=== PATIENT | female | born 1990 | race Asian ===

== ENCOUNTER 2025-04-06 09:49 | Inpatient (IN) ==
[2025-04-06] MEDS ORDERED: TERBUTALINE 1 MG/ML VIAL SUBQ PRN (09:57)
[2025-04-06] MEDS ORDERED: METHYLERGONOVINE 0.2 MG/ML VIAL IM PRN (09:57)
[2025-04-06] MEDS ORDERED: OXYTOCIN/SODIUM CHLORIDE 500 ML IV PRN (09:57)
[2025-04-06] MEDS ORDERED: ACETAMINOPHEN 500 MG TABLET PO PRN ×2 (09:57)
[2025-04-06] MEDS ORDERED: ONDANSETRON ODT 4 MG TABLET PO PRN (09:57)
[2025-04-06] MEDS ORDERED: hydrALAZINE INJ 20 MG/ML VIAL IVP PRN (09:57)
[2025-04-06] MEDS ORDERED: fentaNYL 100 MCG/2 ML VIAL IVP PRN (09:57)
[2025-04-06] MEDS ORDERED: SODIUM CHLORIDE FLUSH 0.9% 10 ML SYRINGE IVP PRN (09:57)
[2025-04-06] MEDS ORDERED: CALCIUM CARBONATE CHEW 500 MG TABLET PO PRN (09:57)
[2025-04-06] MEDS ORDERED: CARBOPROST TROMETHAMINE 250 MCG/ML VIAL IM PRN (09:57)
[2025-04-06] MEDS ORDERED: LABETALOL 20 MG/4 ML SYRINGE IVP PRN ×3 (09:57)
[2025-04-06] MEDS ORDERED: METOCLOPRAMIDE 10 MG TABLET PO PRN (09:57)
[2025-04-06] MEDS ORDERED: OXYTOCIN 10 UNIT/ML VIAL IM PRN (09:57)
--- NOTE | 2025-04-06 09:57 | HISTORY & PHYSICAL EXAMINATION ---
Admit History Smoking Status: Never smoker Other Maternal History Other Maternal History: Patient is a 34-year-old G2, P1 at 39 weeks 0 days gestation presenting for induction of labor at term.. She has good movement. Denies loss of fluid. No BURTON/BV or RUQP. No vaginal bleeding. Denies nausea and vomiting. Denies urinary urgency or dysuria. All other symptoms reviewed and were negative except per HPI. 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 Pre- Weight: 138 BMI: 23.6 Blood type: B+ Antibody: neg CBC: H/H: plt 12.8/37.7 284 RUB: immune VZV: immune HBsAg: negative HepC: NR RPR/AB-EIA: NR HIV: NR PAP:2021-normal GC/CT: 2/5-Negative HSV: denies self/partner Genetic testing: Negative NIPT. Negative OSB. Discussed carrier screening. Covid: had covid just before Flu: vaccinated in the fall RSV: Not in season FAS: Placenta: posterior w/o previa Cord:3VC MARY:Normal EFW: 2138g, 51% 50gm OGCT:168 3HR GTT:Profiling on week. TDAP: 02/03 Breast Pump:02/03 3rd trimester H/H/PLT 11.3/35.3/290 RPR: NR GBS:03/16- negative Contraception Meds/Allgy Home Medications Ambulatory Orders Medication Instructions Recorded Confirmed vits no.126-ferrous fum tab PO 09/15/2403/31 28 mg iron-folic acid 800 mcg tablet (Classic ) blood sugar diagnostic (Blood #50 ea 03/16/25 03/31/25 Glucose Test strips) blood-glucose meter (Blood Glucose #1 ea 03/16/2503/18 Monitoring kit) lancets 33 gauge #100 ea 03/16/25 03/31/25 Allergies Allergies Allergy/AdvReac Type Severity Reaction Status Date / Time No Known Drug Allergies Allergy Verified 03/16/25 10:58 PFSH Active Problems All Active Problems (Updated 04/06/25 @ 15:07 by Ej Mcalin MD) 39 weeks gestation of (Acute) Small for gestational age fetus affecting management of mother in grijalva in third trimester (Acute) Glucose intolerance of (Acute) Supervision of normal (Acute) Social History Social History (Updated 11/02/24 @ 14:01 by Gregoria Mccracken MD) Smoking Status: Never smoker Do you dip or chew tobacco?: No Living arrangement: At home Marital Status: Living Condition: With family Support Person: Yes Living Situation Details: Karlos, daughter born 05/2022. they own [employer]. Level: Independent Occupation - Current: work/owns [employer] Review of Systems Status of ROS: 10 or more systems reviewed and unremarkable except as noted in history and below Physical Other Notes Labor Progress Note/Additional Text: General: Alert, oriented, no acute distress Head: Normal cephalic atraumatic Eyes: PERRLA, extraocular motions intact. Respiratory: Normal rate of respiration. No accessory muscle use, normal respiratory effort. Abdomen: Gravid, nontender, nondistended Extremities: Normal range of motion Neuro: Oriented x3. Normal movements Psych: Appropriate mood and affect. Normal judgment and insight SVE: 0/0/-3 FHT: 140 BPM baseline, moderate variability, accelerations present, no decelerations. Reactive NST [place]: quiescent Plan for Labor Plan For Labor I expect patient to be DC'd or transferred within 96 hours.: Yes Conclusion/Plan Problem List (1) Supervision of normal : Plan: Admit to L&D, admit labs, epidural patient's request. Plan to start with cervical ripening with misoprostol. Oxytocin and amniotomy when favorable. Qualifiers: Normal : other normal Trimester: third trimester Qualified Code(s): Z34.83 - Encounter for supervision of other normal , third trimester (2) Glucose intolerance of :
[2025-04-06 11:46] LABS: HCT - HEMATOCRIT 36.0 % (37.0-47.0); HGB - HEMOGLOBIN 11.6 g/dL (12.0-16.0); MEAN PLATELET VOLUME 10.6 fL (7.9-10.8); NRBC ABSOLUTE COUNT (AUTO) 0.00 x10^3/uL; NUCLEATED RED BLOOD CELLS AUTO 0.0 /100WBC; PLT - PLATELET COUNT 305 10^3/uL (130-450); RED CELL DISTRIBUTION WIDTH 12.8 % (12.0-15.0)
--- NOTE | 2025-04-06 14:03 | ANESTHESIA PROCEDURE NOTE ---
Pre-Anesthesia VS, & Labs Diagnosis Surgical Diagnosis:: Induction of labor Procedure Procedure: vaginal delivery Vitals Vital Signs: Temp Pulse Resp BP 36.7 C 113 H 19 138/82 H 04/06/25 10:59 04/06/25 10:59 04/06/25 10:59 04/06/25 10:59 NPO NPO: Other (clear liquids during labor) Is Patient ?: Yes Lab Results Current Lab Results: Laboratory Tests 04/06/25 11:20: WBC 6.8, RBC 4.17 L, Hgb 11.6 L, Hct 36.0 L, MCV 86.3, MCH 27.8, MCHC 32.2, RDW 12.8, Plt Count 305, MPV 10.6, Neut # (Auto) 4.7, Lymph # (Auto) 1.2 L, [place] # (Auto) 0.8, Eos # (Auto) 0.1, Baso # (Auto) 0.0, Absolute Nucleated RBC 0.00, Nucleated RBC % 0.0, Blood Type B POSITIVE, Antibody Screen NEGATIVE Lab results reviewed: Yes 04/06/25 11:20 Meds/Allgy Home Medications Ambulatory Orders Medication Instructions Recorded Confirmed vits no.126-ferrous fum tab PO 09/15/2403/31 28 mg iron-folic acid 800 mcg tablet (Classic ) blood sugar diagnostic (Blood #50 ea 03/16/25 03/31/25 Glucose Test strips) blood-glucose meter (Blood Glucose #1 ea 03/16/25 08/1 12/10 Monitoring kit) lancets 33 gauge #100 ea 03/16/25 03/31/25 Allergies Allergies Allergy/AdvReac Type Severity Reaction Status Date / Time No Known Drug Allergies Allergy Verified 03/16/25 10:58 PFSH Active Problems All Active Problems 39 weeks gestation of (Acute) Small for gestational age fetus affecting management of mother in grijalva in third trimester (Acute) Glucose intolerance of (Acute) Supervision of normal (Acute) Social History Social History (Updated 11/02/24 @ 14:01 by Gregoria Mccracken MD) Smoking Status: Never smoker Do you dip or chew tobacco?: No Living arrangement: At home Marital Status: Living Condition: With family Support Person: Yes Living Situation Details: Karlos, daughter born 05/2022. they own [employer]. Level: Independent Occupation - Current: work/owns [employer] Anesthesia Exam (Expanded) Exam General: Alert, Oriented x3 and Cooperative Dental: WNL Mouth Openin Fingerbreadth Neck Mobility: Normal Mallampati classification: II Thyromental Distance: 4-6 cm Exam Exam Vital Signs: Vital Signs x48h Temp Pulse Resp BP 04/06/25 10:59 36.7 C 113 H 19 138/82 H Plan Plan Anesthesia Type: Epidural Consent for Procedure(s) Verified and Reviewed: Yes Code Status: Attempt Resuscitation ASA Classification ASA classification: 2-Mild systemic disease Is this case an emergency?: No
[2025-04-06] MEDS: FAMOTIDINE 20 MG/2 ML VIAL IVP SCH (15:54)
[2025-04-06] MEDS: SODIUM CHLORIDE FLUSH 0.9% 10 ML SYRINGE IVP SCH (15:55)
--- NOTE | 2025-04-06 17:15 | PROVIDER PROGRESS NOTE ---
Labor Progress Note Labor Progress Note Labor Progress Note/Additional Text: Patient doing well, received second dose of misoprostol. Intermittently elevated blood pressures, now meeting criteria for gestational hypertension. Labs were drawn. Fetus remains category 1. Tunde very regularly. Feeling more intense, but 3/10. Next dose due at 1930 unless tunde too frequently. Discussed cervical ripening balloon, but patient will continue to consider, currently somewhat hesitant.
[2025-04-06 17:37] LABS: HCT - HEMATOCRIT 39.8 % (37.0-47.0); HGB - HEMOGLOBIN 12.9 g/dL (12.0-16.0); MEAN PLATELET VOLUME 10.5 fL (7.9-10.8); PLT - PLATELET COUNT 320.0 10^3/uL (130-450); RED CELL DISTRIBUTION WIDTH 12.9 % (12.0-15.0)
[2025-04-06 17:54] LABS: ALT ALANINE AMINOTRANSFERASE 13.0 IU/L (10-60); AST ASPARTATE AMINOTRANSFERASE 14.0 IU/L (10-42); BUN - BLOOD UREA NITROGEN 9.0 mg/dL (6-20); CARBON DIOXIDE - CO2 20.0 mmol/L (21-32); CREATININE 0.4 mg/dL (0.6-1.3); GFR - MDRD 184.0 (>89)
[2025-04-06 18:27] LABS: TOTAL PROTEIN,URINE TIMED 43.0 mg/dL
[2025-04-06] MEDS: LACTATED RINGERS 1,000 ML IV PRN (23:30)
[2025-04-06] MEDS ORDERED: ROPIVACAINE 0.2% 200 MG/100 ML BAG EP ONE (23:47)
[2025-04-06] MEDS ORDERED: LIDOCAINE 2%-EPI 1:100000 20 ML MDV ONE (23:47)
[2025-04-07] MEDS ORDERED: ONDANSETRON 4 MG/2 ML VIAL IVP PRN ×2 (00:26→18:57)
[2025-04-07] MEDS ORDERED: NALOXONE 0.4 MG/ML VIAL IVP PRN (00:26)
[2025-04-07] MEDS ORDERED: ePHEDrine 50 MG/ML VIAL IVP PRN (00:26)
--- NOTE | 2025-04-07 01:05 | PROVIDER PROGRESS NOTE ---
Labor Progress Note Labor Progress Note Labor Progress Note/Additional Text: Patient doing very well. Very comfortable after receiving epidural for pain control. Received 2 doses misoprostol, but has been tunde too frequently for additional doses since. Not tunde every 1 to 3 minutes. Last dose of misoprostol at 1525. After comfortable, patient consented to cervical ripening balloon placement. Balloon is placed with 80 mL in the uterine and vaginal balloon. Anticipate oxytocin if contractions spaced out. heart rate 135 bpm baseline, moderate variability, accelerations present, no decelerations. Category 1. Cervical exam 50/-2. Unchanged from 1900. Much easier exam from my initial exam yesterday morning.
[2025-04-07] MEDS: ROPIVACAINE 0.2% 200 MG/100 ML BAG EP PRN (07:58)
--- NOTE | 2025-04-07 08:03 | PROVIDER PROGRESS NOTE ---
Labor Progress Note Labor Progress Note Labor Progress Note/Additional Text: heart rate 125 bpm baseline, moderate variability, accelerations present, no decelerations. Category 1. Ambrosio every 2-4 minutes. After discussion, patient consented to amniotomy which was performed with large amount of clear fluid.
[2025-04-07] MEDS: OXYTOCIN/SODIUM CHLORIDE 500 ML IV SCH (13:31)
--- NOTE | 2025-04-07 13:46 | PHARMACY PROGRESS NOTE ---
Best Possible Medication History Admit Date and Time: 04/06/25 0957 Home Medications Medication Instructions Recorded Confirmed Type vits no.126-ferrous fum 1 tab PO DAILY 04/07/25 History 28 mg iron-folic acid 800 mcg tablet (Classic ) blood sugar diagnostic (Blood #50 ea 03/16/25 03/31/25 Rx Glucose Test strips) blood-glucose meter (Blood Glucose #1 ea 03/16/2503/18 Rx Monitoring kit) lancets 33 gauge #100 ea 03/16/25 03/31/25 Rx Processed by: Pharmacy Medications reviewed in ED?: No Medication History completed: Yes Patient Interview: Pt unable to participate Secondary Source(s): Physician records and Insurance records [facility] Statement: As the person ultimately responsible for medication therapy, providers are able to order a medication from an existing home medication list in [facility] via the "Reconcile Routine" prior to Confirmation of that medication by child support officer. S [facility] practice is discouraged except when the physician, in their clinical judgment, deems that a medical need exists for a medication without regard to previous use.
--- NOTE | 2025-04-07 15:58 | PROVIDER PROGRESS NOTE ---
Labor Progress Note Labor Progress Note Labor Progress Note/Additional Text: Patient getting tired. Has been pushing for approximate 3 hours, but contractions had spaced out and had to start oxytocin. Fetus still category 1 with baseline of 140 bpm, moderate variability, accelerations present, no decelerations. Ambrosio approximately 5 minutes. Oxytocin increased to 10. Will plan on giving a break and increase oxytocin until more regular. Discussed risks and benefits of vacuum delivery with patient and partner, but I believe with more frequent contractions, she will likely not need this.
[2025-04-07] MEDS: TRANEXAMIC ACID IN NACL 1,000 MG/100 ML BAG IV PRN (18:53)
[2025-04-07] MEDS ORDERED: WITCH HAZEL/GLYCERIN 1 PAD TOP PRN (18:57)
[2025-04-07] MEDS ORDERED: CALCIUM CARBONATE CHEW 500 MG TABLET PO PRN (18:57)
[2025-04-07] MEDS ORDERED: SIMETHICONE CHEW 80 MG TABLET PO PRN (18:57)
--- NOTE | 2025-04-07 18:59 | DELIVERY NOTE ---
Delivery Note Labor Labor: positive Augmented by ARM and Augmented by oxytocin Delivery Method Infant Delivery Method: positive Spontaneous vaginal delivery Cervical Ripening Method Cervical Ripening Method: positive Misoprostil Presentation Presentation: positive TAMMIE - left occiput anterior Nuchal Cord Nuchal Cord: positive None Amniotic Fluid Description Amniotic Fluid Description: positive Clear Vacuum Use Indication for Vacuum Use: positive Prolonged 2nd stage Laceration Laceration: positive 2nd degree Suture Suture Type: positive Vicryl Suture Size: positive 3-0 : positive [place] used and Warmer used Cord Cord: positive 3 vessels Placenta Placenta: positive Intact Estimated Blood Loss Estimated Blood Loss (in cc): 500 Post Delivery Events Post Delivery Events: positive Shoulder dystocia Delivery Comments (Free Text/Narrative) Delivery Comments (Free Text/Narrative): Preoperative Diagnoses 39 weeks gestation History of vacuum-assisted vaginal delivery Glucose intolerance of Postoperative Diagnoses Same Status post vacuum-assisted vaginal delivery Delivery of live grijalva Shoulder dystocia Summary Patient is admitted at 39 weeks gestation for induction of labor. She received 2 doses of misoprostol, but was tunde too frequently for additional doses. She then received a cervical ripening balloon and continued to contract. She had amniotomy for augmentation. She progressed around to until complete and began to push. Due to very spaced out contractions, oxytocin was started. She had a long second stage of labor and was counseled on the risks and possibility of vacuum-assisted vaginal delivery, and after a prolonged second stage, agreed to vacuum-assisted vaginal delivery. Delivery Summary: The patient was counseled on the risk of vacuum delivery. We discussed a trial of vacuum delivery with no significant descent we would proceed with section. We discussed that we would give up if no descent occurred after 2 tractions, if delivery did not occur after 4 tractions or if the vacuum detached more than twice. We discussed moving to section if the vacuum was not successful. We discussed the risk of cephalhematoma, hemorrhage, nerve injuries, bruises, elevated bilirubin, as well as maternal issues of soft tissue injuries. We discussed that traction alone cannot deliver the baby, we can only assist maternal pushing efforts. Prior to the vacuum, we did call the surgical team to come to the hospital in case of need for section. The flexion point was identified 3 cm anterior of the posterior fontanelle. Upon maternal sensation of contraction, the suction was initiated to the green zone and with three pushes, gentle traction in the axis of descent was performed. Suction was decreased between contractions. The vacuum was continued until large crown was noted, then removed. There were no pop-off's. Upon maternal pushing the head was delivered atraumatically, the shoulders did not deliver spontaneously, so asked for suprapubic pressure and announced the shoulder dystocia. At that point, the fetus did not deliver, so I asked for Lis position and additional nurses at bedside. Anesthesia was in-house. I attempted rotation of the fetus, but this did not alleviate the shoulder dystocia, so I reach posteriorly and was able to deliver the posterior shoulder then the remainder of the fetus. In total there was about 45 seconds of shoulder dystocia noted. I did note a possible right clavicular fracture and let pediatrics know. A female infant was delivered with APGARS of 8 at 1 minute and 9 at 5 minutes. The infant was placed on its mother's chest as I cut the cord, but was subsequently taken to the warmer. After a brief exam with a vigorous , it was brought back to the mother's chest. The placenta delivered intact with three vessel cord. Placenta was not sent to pathology. Thirty units of Pitocin were added to the IV fluid and allowed to run freely. Uterine massage was performed until uterus was deemed firm. Upon inspection of the perineum, a second-degree midline laceration was noted and repaired with a running fashion. While we had good uterine tone, we did have some large clots from the uterus so she was given tranexamic acid. Upon re-inspection the patient was hemostatic. Uterus again massaged and found to be firm. Needle and sponge counts were correct. Patient was stable and allowed to recover in L&D room. Infant was stable and remained in room with mother. weight is pending at this time.
[2025-04-07] MEDS ORDERED: LACTATED RINGERS 1,000 ML IV SCH (19:00)
[2025-04-07] MEDS: ACETAMINOPHEN 500 MG TABLET PO SCH (19:58)
[2025-04-07] MEDS: DOCUSATE SODIUM 100 MG CAPSULE PO PRN (19:58)
[2025-04-07] MEDS: IBUPROFEN 600 MG TABLET PO SCH (19:58)
--- NOTE | 2025-04-08 18:18 | Discharge Summary ---
"Discharge Summary Admit Date: 04/06/25 Discharge Date: 04/08/25 Discharging Provider: Gregoria Mccracken MD Code Status: Attempt Resuscitation DIAGNOSES Admission Diagnoses: term 39 weeks admitted for labor induction. Poor compliance with care. GDM with unclear control as not compliant. Discharge Diagnoses with Status of Each Condition: vacuum assisted vaginal delivery complicated by shoulder dystocia with broken infant clavicle preeclampsia without severe features diagnosed in labor. HPI History of Present Illness: patient is a 34 yo with GDM but poor compliance with visits and care. No 3 hr test. sugar testing starting 37 weeks and fine if she ate no rice but she eats rice every meal normally. 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 CONSULTS | PROCEDURES Procedures: vacuum assisted vaginal delivery with shoulder dystocia and broken infant clavicle. HOSPITAL COURSE Hospital Course: Patient admitted and received miso and then tunde too much for more. Received a catheter at 0100. Amniotomy at 0800 copious clear fluid. got to complete and took about 6 hrs to deliver. EFW by US week prior was only 35%ile. Vacuum placed and baby's head came easily but then shoulder's did not. manuevers done and baby delivered before 1 minute. Clavicle fracture ocurred. baby [id number] gm 20.75 in long. Apgars 8/9. finally born at 18:37. during labor dx of preeclampsia without severe features. PP a few elevated pressures but none in severe range. highest 141/92. mostly more normal. ALLERGIES Allergies Allergy/AdvReac Type Severity Reaction Status Date / Time No Known Drug Allergies Allergy Verified 03/16/25 10:58 MEDICATIONS Ambulatory Orders Medication Instructions Recorded Confirmed vits no.126-ferrous fum 1 tab PO DAILY 04/07/25 28 mg iron-folic acid 800 mcg tablet (Classic ) acetaminophen 325 mg capsule 325 - 650 mg (1 - 2 x 325 mg) PO 04/08/25 Q4H PRN pain #60 caps docusate sodium 100 mg capsule 100 mg PO BID PRN const ipation #60 04/08/25 (Colace) caps ibuprofen 600 mg tablet 600 mg PO Q6H #30 tabs 04/08 PHYSICAL EXAM AT DISCHARGE Vital Signs: Vital Signs x48h Temp Pulse Resp BP Pulse Ox 04/08/25 14:12 36.8 C 100 16 141/92 H 99 General Appearance: positive No acute distress and Alert Respiratory: positive No respiratory distress Cardiovascular: positive Regular rate & rhythm Abdomen: positive Non-tender Extremities: positive Non-tender LABS 04/06/25 17:25 04/06/25 17:25 Other Lab Results: MTP 0.5 FOLLOW UP Follow Up: Dr. Mclain on Friday for bp check. TIME SPENT Time Spent in Discharge (Minutes): 30 Discharge Plan Discharge Patient Disposition: [place], Self Care Condition: Good Prescriptions: Continued docusate sodium [Colace] 100 mg capsule 100 mg PO BID PRN (Reason: constipation) Qty: 60 1RF ibuprofen 600 mg tablet 600 mg PO Q6H Qty: 30 0RF acetaminophen 325 mg capsule 325 - 650 mg PO Q4H PRN (Reason: pain) Qty: 60 1RF Classic 28 mg iron- 800 mcg tablet 1 tab PO DAILY Discontinued (DME) lancets 33 gauge misc See Rx Instructions .ROUTE .MEDSUPPLY Qty: 100 3RF Rx Instructions: Check blood sugar fasting in the morning and then 2 hours after breakfast, lunch, and dinner. Keep log of values. (DME) Blood Glucose Test Strip See Rx Instructions .MEDSUPPLY Qty: 50 1RF Rx Instructions: Check blood sugar fasting in the morning and then 2 hours after breakfast, lunch, and dinner. Keep log of values. (DME) blood-glucose meter [Blood Glucose Monitoring] Kit See Rx Instructions .MEDSUPPLY Qty: 1 0RF Rx Instructions: Check blood sugar four times daily: fasting in the morning and 2 hours after breakfast, lunch, and dinner. Activity Restrictions: pelvic rest for 6 weeks. Activity Restrictions/Additional Instructions: If you are not going to breast feed, wear a tight fitting bra at all times. Diet: Regular Print Language: Albanian Patient Instructions: Care Vaginal ... Follow-up Care: Ej Mclain MD [Provider Admit Priv/Credential, Obstetrics/Gynecology] Report called to and time (if no answer, doc. time of each call attempted): n/a Vitals documented within 30 minutes of discharge?: Yes"
[2025-04-08 19:51] VITALS: BP 129/78; TEMP 97.7; O2SAT 97
--- NOTE | 2025-04-08 21:29 | Labor Flowsheet ---
Labor Flowsheet Datetime Report Generated by CPN: 04/08/2025 21:28 Datetime: 04/08/2025 19:37 VITAL SIGNS NBP Sys/Rosamaria/Mean (mmHg): 129 : 78 : 91 Pulse: 90 Datetime: 04/07/2025 20:59 Stage of : Recovery Datetime: 04/07/2025 20:44 Temperature (C): 36.9 Datetime: 04/07/2025 20:14 PAIN Pain Scale: 5 Pain Presence: Intermittent Datetime: 04/07/2025 19:59 Pain Type: Cramping; Pressure Pain Location: Abdomen; Perineum Datetime: 04/07/2025 19:39 Membranes Ruptured Date/Time: 04/07/2025 07:42 Station Vacuum/Forceps Applied: +3 Datetime: 04/07/2025 19:36 LaborFlag: Labor Datetime: 04/07/2025 18:53 Medication Comments: TXA Datetime: 04/07/2025 18:42 Stage 2 Comments: placenta Datetime: 04/07/2025 18:37 UTERINE ACTIVITY Monitor Mode: External Frequency (min): 2-5 Quality: Strong Duration (sec): 60-100 Pattern: Normal: <= 5 Contractions in 10 Minutes Resting Tone (Palpate): Relaxed Pitocin Checklist: At Least 1 Acceleration of 15 bpm x 15 Seconds in 30 Minutes or Adequate Variability; No More than 1 Late Deceleration Occurred in Past 30 Minutes; No More than 2 Variable Decelerations > 60 Seconds in Duration and decreasing >60 bpm in 30 minutes; No More than 5 Uterine Contractions in 10 Minutes for any 20 Minute Interval; Uterus Palpates Soft between Contractions ASSESSMENT A Monitor Mode: External US FHR Baseline Rate : 145 Variability: Minimal - Undetectable to <=5 bpm Accelerations: 15X15 Decelerations: Early; Variable Datetime: 04/07/2025 18:36 Comments: suprapubic pressure Datetime: 04/07/2025 18:34 Vacuum: On Datetime: 04/07/2025 18:33 Communication Comments: provider consenting pt for vacuum delivery Datetime: 04/07/2025 18:12 Anesthesia Comments: dose changed to 5mL/h Datetime: 04/07/2025 17:00 Category: Category I Datetime: 04/07/2025 16:33 PATIENT CARE Patient Position/Activity: Left Tilt Datetime: 04/07/2025 16:10 I/O Interventions: Straight Cath (ml) @ 350 Datetime: 04/07/2025 15:06 Patient Care Comments: RN and PROVIDER RELATIONS CONSULTANT remain @bedside coaching with pushing Datetime: 04/07/2025 14:00 MEDICATIONS Pitocin (milliunits): Increased to @ 4 Datetime: 04/07/2025 13:21 Monitor Interventions for UA: [place] Adjusted Datetime: 04/07/2025 12:36 STAGE 2 Pushing Position: Pushing with Contractions Datetime: 04/07/2025 12:30 Vital Sign Comments: BP cuff readjusted Datetime: 04/07/2025 12:24 VAGINAL EXAM Dilatation (cm): 10.0 Effacement (%): 100 Station: 1 Exam by: A. Anicetoas RN Datetime: 04/07/2025 10:57 Vaginal Bleeding: Normal Show Cervix, Consistency: Soft Cervix, Position: Anterior Vaginal Exam Comments: ant lip Datetime: 04/07/2025 07:42 Membrane Status: Ruptured Membranes Rupture Method: Artificial Amniotic Fluid Color: Clear Amniotic Fluid Amount: Moderate Membrane Comments: AROM by Dr. Mclain Datetime: 04/07/2025 07:29 Respirations: 16 Datetime: 04/07/2025 07:25 COMMUNICATION Communication: RN at Bedside; RN Reviewed Strip; Report Given to @ AMando Polanco RN Datetime: 04/07/2025 07:00 FHR Baseline Changes: No Baseline Change Datetime: 04/07/2025 05:30 Temperature Route: Oral Datetime: 04/07/2025 04:01 Contraction Comments: tracing inverted Datetime: 04/07/2025 02:19 Monitor Interventions for FHR: Ultrasound Adjusted Datetime: 04/07/2025 00:58 SpO2 (%): 99 Datetime: 04/07/2025 00:57 Cervical Ripening Agents: Thompson Balloon; Cytotec @ Cervical Ripening Agents Other: cooks catheter placed by MD, 80ml NS in both balloons Datetime: 04/07/2025 00:03 ANESTHESIA Anesthesia Plans: Epidural Epidural Procedure: Test Dose Datetime: 04/06/2025 23:58 PROCEDURE TIME OUT Procedure Verify: Correct Patient Identity; Correct Side and Site are Marked; Accurate Procedure Consent Form; Agreement on Procedure to be Done; Correct Patient Position; Relevant Images and Results are Properly Labeled and Displayed; Addressed Need to Administer Antibiotics or Fluids for Irrigation; Safety Precautions Based on Patient History or Medication Use Epidural Positioning: Sitting Datetime: 04/06/2025 20:30 MATERNAL ASSESSMENT Level of Consciousness: Alert DTR's/Clonus: DTRs 2+ Headache: Denies Breath Sounds, Left: Clear and Equal Breath Sounds, Right: Clear and Equal Datetime: 04/06/2025 16:52 Pain Assessment Comments: pt rates pain 3/10 and states it is very manageable
== END 2025-04-08 20:10 | disposition home or self-care (01) | DRG 807 ==
LOC: WFO 09:49 → FBP 09:53
PROVIDERS: ADMIT Obstetrics & Gynecology; ATTEND Obstetrics & Gynecology
DX: O63.1 Prolonged second stage (of labor); O66.0 Obstructed labor due to shoulder dystocia; E74.39 Other disorders of intestinal carbohydrate absorption; O14.14 Severe pre-eclampsia complicating childbirth; Z3A.39 39 weeks gestation of pregnancy; Z37.0 Single live birth; Z91.199 Patient's noncompliance with other medical treatment and regimen due to unspecified reason; O70.1 Second degree perineal laceration during delivery; O99.284 Endocrine, nutritional and metabolic diseases complicating childbirth